=== PATIENT | female | born 1960 | race Caucasian/White ===

== ENCOUNTER 2021-05-18 14:39 | Emergency (ER) | payer MEDICARE, MEDICAID ==
[~2021-05-18] VITALS: Ht 157.5 cm; Wt 56.7 kg
[2021-05-18 14:40] VITALS: BP 134/70
--- NOTE | 2021-05-18 14:45 | NUR ---
TO ER BED 14,SHEARER OPERATOR CALLED FOR EVAL/PLACEMENT
--- NOTE | 2021-05-18 15:15 | NUR ---
SEEN BY SHAWN,WAITING FOR DISPO
[2021-05-18] MEDS ORDERED: CEPH500C2 PO (15:21)
[2021-05-18] MEDS ORDERED: SULF1TAB48 PO (15:21)
--- NOTE | 2021-05-18 15:30 | NUR ---
SS note SS received request for halfway placement. SHER contacted [facility] and was notified by Rena at the halfway that there are female beds available. Rena stated that intake is between 9 am-5 pm. [facility] [address] [place] [address] Intake between 9 am-5pm SHER will provide the pt with this halfway resource and bus instructions.
--- NOTE | 2021-05-18 15:33 | NUR ---
"SS consult SS consult requested for homelessness and placement. Pt is a 60-year-old, female. SW met with pt at her bedside in the emergency department. Pt presented with a depressed mood and anxious affect. Pt's behavior was cooperative. Pt appeared disheveled and had multiple sores on her body. Pt was appropriately dressed. Per chart, pt presented to the hospital on 05/18/21 for sores. Pt is currently homeless and stated that she has been homeless for the last 10 years. Pt has been living on the [address]. Pt stated that she has no access to social support at this time. Pt has no source of income. Pt reported hx of substance use which includes methamphetamine (occasional) and tobacco use (1 pack/day). Pt stated that she is independent with her ADL's and is ambulatory. SW assessed pt's hx of mental illness. Pt reported hx of Bipolar Disorder and stated that she is currently not taking psychotropic medication. Pt denied auditory or visual hallucinations. Pt denied suicidal or homicidal ideation. SHER offered the pt homeless resources. SHER notified the pt that female beds are available at: [facility] [address] [place] [address] Intake between 9 am-5pm SW provided the pt with this information and with bus instructions to fdc. Pt stated that she will follow up independently. Pt accepted the homeless resources and thanked SHER. SW also offered the pt resources for mental health and substance use. Pt accepted the additional resources. Pt signed the homeless waiver the SW filed the waiver in the pt's chart. PLAN: Pt plans to return to her prior living arrangement on the street or to a fdc. No further intervention at this time, however, SW will remain available as needed. RESOURCES: Year-round shelters: [facility] [address] [place] [place] [address] ; [facility] [address] [place] [address]; [place] [id number] [facility] [address] SPA 4 | [facility] Provider: First to Serve Address: [address] [place] [address] # of Beds: 48 Population Served: [facility] Provider: First to Serve Address: [address] [facility], [address] # of Beds: 73 Population Served: [place] SPA 6 | [facility] Provider: Home at Last Address: [address] [facility], [address] # of Beds: 63 Population Served: [place]ed SPA 3 | [facility] Provider: [facility] [place] Address: [address] [facility], [address] # of Beds: 75 Population Served: [place] SPA 8 | [facility] Provider: [facility] [place] Address: [address] [facility], [address] # of Beds: 80 Population Served: [place] SPA 1 | [facility] Provider: [employer] [facility] [place] Address: [id number] [place] [address], [facility] # of Beds: 85 Population Served: [facility] | [facility] Provider: [place] [facility] Address: Confidential (please call for location) # of Beds: 52 Population Served: [facility] 4 | [facility] Provider: [facility] Address: [address] [facility], [address] # of Beds: 49 Population Served: [facility] Provider: First To Serve Address: [address] [facility], [address] # of Beds: 27 Population Served: Jaime Hygiene: [facility]: [address] [place] ; [place] [facility] [address] [facility] ; [facility] [address] . Food Resources: [place] [employer] at [facility]- [address] [place]; Meet Each Need with Dignity ([facility]) [address] [facility]; [facility] [address] [facility]; [facility] [address] [place] [facility] [place]. Mental Health resources provided: [facility] [address] [place] [address] ; [facility] [address] [facility] [address], [place], [place] [phone] ; [facility] [address] [facility] [place], [place] [id number] ; [facility] [address] [place], [place] [phone] Healthcare Clinics: [facility] [address], [address] [place]. [place] ; [facility] [address] [facility] [address] [place] [address]; [facility] [address] [facility]. [place] [address] [phone] Counseling--[facility]patient [facility] [address] [facility], [address] [place], [place] [id number] (Specializes in in-depth psychotherapy for emotional distress: anxiety, depression, interpersonal conflicts, life transitions, childhood abuse) PSYCHIATRIC OUTPATIENT SERVICES [facility] Partial Hospitalization and Intensive Outpatient Program (Managed Care and [place] Only) [address] [facility]. [facility] [address]44828 [facility] Partial Hospitalization and Outpatient Program [address] [place] [facility]. [address] [place], [place] [phone] [facility] Partial Hospitalization and Outpatient Program [address]. [place], [place] [id number] [facility] [address] [facility]. [address] [place], [place] [id number] [facility] Partial Hospitalization and Outpatient Program [address] [place], [place] [phone] Substance use resources provided included: [facility] Substance Abuse Self-Helpline (SAS) ; [facility] [address] [facility] [place] [address] ; [facility] [address] [facility] [address] ; [facility] [address] [facility] [address] ; [facility] [address] [place] [facility] [address] ; [facility] [address] [facility] [phone] ; [facility]; [facility] [place]; [place] [facility]; Alcoholics Anonymous -SFV"
== END 2021-05-18 17:24 | disposition home or self-care (01) ==
LOC: ER 14:46 → EDSEX 14:46 → ER 17:24
DX: L03.211 Cellulitis of face (principal); L03.114 Cellulitis of left upper limb; L03.113 Cellulitis of right upper limb; L03.116 Cellulitis of left lower limb; L03.115 Cellulitis of right lower limb; Z59.0 Homelessness; Z79.899 Other long term (current) drug therapy

== ENCOUNTER 2021-05-19 08:07 | Emergency (ER) | payer MEDICARE, MEDICAID ==
[~2021-05-19] VITALS: Ht 154.9 cm; Wt 56.7 kg
[~2021-05-19 08:07] MED LIST: CEPH500C2 PO; SULF1TAB48 PO
[2021-05-19 08:16] VITALS: BP 137/80
--- NOTE | 2021-05-19 08:40 | NUR ---
CHROME WORKER AT THE BEDSIDE
== END 2021-05-19 10:01 | disposition home or self-care (01) ==
LOC: ER 08:16
DX: R23.4 Changes in skin texture (principal); F10.10 Alcohol abuse, uncomplicated; F17.200 Nicotine dependence, unspecified, uncomplicated; Y90.9 Presence of alcohol in blood, level not specified; Z59.0 Homelessness; Z60.2 Problems related to living alone; Z79.899 Other long term (current) drug therapy
CPT/HCPCS: 73630-TC